=== PATIENT | female | born 1990 | race Caucasian/White ===

== ENCOUNTER 2017-02-08 21:58 | Emergency (ER) | payer OTHER ==
[~2017-02-08] VITALS: Ht 162.6 cm; Wt 73.5 kg
[2017-02-08 22:01] VITALS: BP 112/76
--- NOTE | 2017-02-08 22:10 | NUR ---
PATIENT RETURN [facility], ERMD NOTED
--- NOTE | 2017-02-09 02:18 | NUR ---
Patient ambulated to bed 10. RN evaluating patient at bedside.
--- NOTE | 2017-02-09 02:40 | NUR ---
PATIENT PRESENTS TO ED WITH RT BREAST PAIN, SWELLING, WITH LITTLE D/C STARTED TODAY . PT STATES SHE HAS SAME PROBLEM X3 TIMES BEFORE. DENIES N/V/D; SKIN IS PINK/WARM/DRY; AAOX4 WITH EVEN AND STEADY GAIT; LUNGS CLEAR BL; HR EVEN AND REGULAR; PT DENIES ANY FEVER, CP, SOB, OR COUGH AT THIS TIME; PATIENT STATES PAIN OF 10/10 AT THIS TIME; VSS; PATIENT POSITIONED FOR COMFORT; HOB ELEVATED; BEDRAILS UP X2; BED DOWN. ER MD MADE AWARE OF PT STATUS.
--- NOTE | 2017-02-09 03:15 | NUR ---
DR. CADET PERFORMED BREAST EXAM, JORDY STAND BY.
[2017-02-09] MEDS: KETOROLAC 60 MG/2 ML VIAL IM ONE (03:26)
[2017-02-09 03:45] VITALS: BP 120/78
--- NOTE | 2017-02-09 03:45 | NUR ---
Patient discharged with v/s stable. Written and verbal after care instructions given and explained. Patient alert, oriented and verbalized understanding of instructions. Ambulatory with steady gait. All questions addressed prior to discharge. ID band removed. Patient advised to follow up with PMD. Rx of DICLOXACILLIN AND NORCO given. Patient educated on indication of medication including possible reaction and side effects. Opportunity to ask questions provided and answered.
== END 2017-02-09 03:45 | disposition home or self-care (01) ==
LOC: MED 21:58
DX: N61.0 Mastitis without abscess (principal); Z88.2 Allergy status to sulfonamides; Z88.8 Allergy status to other drugs, medicaments and biological substances
CPT/HCPCS: 96372; 99283; J1885